=== PATIENT | male | born 1985 ===

== ENCOUNTER 2022-12-13 08:55 | Outpatient (CLI) | payer OTHER, SELFPAY | END 2022-12-13 08:56 | disposition home or self-care (01) | PROVIDERS: PCP Physician Assistant Medical; Visit Provider Family Medicine | DX: Z00.00 Encounter for general adult medical examination without abnormal findings (principal); R03.0 Elevated blood-pressure reading, without diagnosis of hypertension; R53.83 Other fatigue; F41.9 Anxiety disorder, unspecified; Z13.6 Encounter for screening for cardiovascular disorders; Z78.9 Other specified health status | CPT/HCPCS: 80053; 80061; 84443 ==